=== PATIENT | female | born 1990 | race Caucasian/White ===

== ENCOUNTER 2017-02-20 01:24 | Emergency (ER) | payer BC, OTHER ==
[2017-02-20 01:47] VITALS: BP 125/77; PULSE 81; TEMP 97.9; BMI 29.2
--- NOTE | 2017-02-20 04:20 | PDOC ---
History of Present Illness - General History Source: Patient Exam Limitations: No Limitations - History of Present Illness Initial Comments: 02/20/17 04:24 The patient is a 26 year old female with significant past medical history of hypothyroidism and UTIs who presents to the ED with 3 days of bilateral lower abdominal pain. Patient reports associated low back pain, dysuria, and some hematuria that she noted yesterday. Denies urgency and frequency. States her symptoms are consistent with her previous UTIs. Her LMP was 3.5 weeks ago. The patient denies fever, chills, cough, SOB, chest pain, and palpitations. The patient denies nausea, vomiting, and diarrhea. Allergies: NKDA Social History: No alcohol, tobacco, or drug use reported. Past Surgical History: None reported PCP: Dr. Nedra Britt <Pati Kelley - Last Filed: 02/20/17 04:27> - General History Source: Patient <WalterraFranky - Last Filed: 02/20/17 04:35> - General Chief Complaint: Urinary Problem Stated Complaint: PAIN,URINARY PROBLEM Time Seen by Provider: 02/20/17 04:07 Past History <Pati Kelley - Last Filed: 02/20/17 04:27> - Past Medical History Thyroid Disease: Yes (HYPO) - Psycho/Social/Smoking Cessation Hx Anxiety: No Suicidal Ideation: No Smoking Status: No Smoking History: Never smoked Number of Cigarettes Smoked Daily: 0 <Franky Burton - Last Filed: 02/20/17 04:35> - Past Medical History Allergies/Adverse Reactions: Allergies Allergy/AdvReac Type Severity Reaction Status Date / Time No Known Allergies Allergy Verified 02/20/17 01:32 Home Medications: Ambulatory Orders Levothyroxine [Synthroid] 75 mcg PO DAILY 10/23/12 Norgestimate-Ethinyl Estradiol [Ortho Tri-Cyclen] 1 each PO 10/23/12 Nitrofurantoin Monohyd/M-Cryst [Macrobid] 100 mg PO BID #14 capsule 10/24/12 Ibuprofen 800 mg PO TID #30 tablet 02/20/17 Sulfamethoxazole/Trimethoprim [Bactrim *Ds*] 1 tab PO BID #14 tablet 02/20/17 Review of Systems - Review of Systems Able to Perform ROS?: Yes Comments:: 02/20/17 04:25 CONSTITUTIONAL: Absent: fever, no chills, no fatigue EYES: Absent: visual changes ENT: Absent: ear pain, no sore throat CARDIOVASCULAR: Absent: chest pain, no palpitations RESPIRATORY: Absent: cough, no SOB GI: +bilateral lower abdominal pain Absent: no nausea, no vomiting, no constipation , no diarrhea GENITOURINARY: +dysuria, hematuria Absent: no frequency MUSCULOSKELETAL: +low back pain Absent: no arthralgia, no myalgia SKIN: Absent: rash NEURO: Absent: headache <WarrenToyPati - Last Filed: 02/20/17 04:27> *Physical Exam - Vital Signs Last Vital Signs Temp Pulse Resp BP Pulse Ox 97.9 F 81 20 125/77 99 02/20/17 01:29 02/20/17 01:29 02/20/17 01:29 02/20/17 01:29 02/20/17 01:29 - Physical Exam Comments: 02/20/17 04:27 GENERAL: Well-appearing, well-nourished. No apparent distress. HEENT: Normocephalic, atraumatic. PERRL, EOM intact. CARDIOVASCULAR: Normal S1, S2. Regular rate and rhythm. PULMONARY: Clear to auscultation bilaterally. ABDOMEN: Soft, non-distended, non-tender. EXTREMITIES: Normal ROM in all four extremities. No gross deformities. SKIN: Warm, dry. No rash NEUROLOGICAL: No focal neurological deficits. <Pati Kelley - Last Filed: 02/20/17 04:27> - Vital Signs Last Vital Signs Temp Pulse Resp BP Pulse Ox 97.9 F 81 20 125/77 99 02/20/17 01:29 02/20/17 01:29 02/20/17 01:29 02/20/17 01:29 02/20/17 01:29 <Franky Burton - Last Filed: 02/20/17 04:35> Medical Decision Making - Medical Decision Making 02/20/17 04:33 Dr. Burton: The scribe's documentation has been prepared under my direction and personally reviewed by me in its entirery. I confirm that the note above accurately reflects all work, treatment, procedures, and medical decision making performed by me. <Franky Burton - Last Filed: 02/20/17 04:35> *DC/Admit/Observation/Transfer - Attestations Scribe Attestion: 02/20/17 04:25 Documentation prepared by Pati Kelley, acting as regional medical director for Franky Burton MD <Pati Kelley - Last Filed: 02/20/17 04:27> - Discharge Dispostion Admit: No <Franky Burton - Last Filed: 02/20/17 04:35> Diagnosis at time of Disposition: Dysuria - Discharge Dispostion Disposition: HOME Condition at time of disposition: Stable - Prescriptions Prescriptions: Sulfamethoxazole/Trimethoprim [Bactrim *Ds*] 1 tab PO BID #14 tablet Ibuprofen 800 mg PO TID #30 tablet - Referrals Referrals: Nedra Britt [Primary Care Provider] - - Patient Instructions Printed Discharge Instructions: DI for Dysuria -- Adult Additional Instructions: Please take medication as directed. Follow up with your doctor as needed. Drink plenty of fluids. Return if symptoms don't improve
[2017-02-20] MEDS ORDERED: IBUPROFEN 400 MG TABLET (FP) PO ONE ×2 (04:31→04:37)
[2017-02-20] MEDS ORDERED: SULFAMETHOXAZOLE/TRIMETHOPRIM 800MG/160MG D.S. TABLET PO ONE (04:31)
[2017-02-20] MEDS ORDERED: SULFAMETHOXAZOLE/TRIMETHOPRIM 800MG/160MG D.S. TABLET ONE (04:37)
[2017-02-20 05:14] LABS: URINE APPEARANCE CLOUDY; URINE BILIRUBIN NEGATIVE (NEGATIVE); URINE COLOR STRAW; URINE GLUCOSE (UA) NEGATIVE (NEGATIVE); URINE KETONE NEGATIVE (NEGATIVE); URINE NITRITE NEGATIVE (NEGATIVE); URINE UROBILINOGEN NEGATIVE E.U./dl (0.2-1.0)
[2017-02-20 05:16] LABS: URINE BLOOD 2+ (NEGATIVE); URINE LEUK ESTERASE 3+ (NEGATIVE); URINE PROTEIN 1+ (NEGATIVE)
[2017-02-20 05:18] LABS: URINE BACTERIA MODERATE /hpf (NONE SEEN); URINE MUCUS RARE; URINE RBC 36 /hpf (0-3); URINE WBC 430 /hpf (3-5)
--- NOTE | 2017-02-22 19:49 | PDOC ---
Patient Follow-up (Call Back) - Post ED Follow - Up Condition at time of discharge: Stable Disposition at time of original discharge: HOME Reason for Call Back: Abnwl. Microbiology (urine C & S from 02/20/17 e coli > 100 ,000 not sensitive to bactrim DS pt.discharged on this medication called pt at [phone] left message to call back to have pt. discontinue bactrim DS and to start on keflex 500 mg bid for 10 days.)
--- NOTE | 2017-02-23 11:43 | PDOC ---
Patient Follow-up (Call Back) - Post ED Follow - Up Condition at time of discharge: Stable Disposition at time of original discharge: HOME Reason for Call Back: Abnwl. Microbiology (pt. called back will send rx for keflex 500 mg bid for 10 days to [facility] , pt. told to stop bactrim DS, and to follow up with PCP for repeat urine testing at end of treatment.)
== END 2017-02-20 04:44 | disposition home or self-care (01) ==
LOC: JER 01:24
DX: R30.0 Dysuria (principal); E03.9 Hypothyroidism, unspecified
CPT/HCPCS: 81003; 81015; 84703; 87086; 87186; 99282-25